=== PATIENT | female | born 1945 | race Asian ===

== ENCOUNTER 2016-11-23 05:31 | Day surgery (SDC) | payer OTHER ==
[~2016-11-23] VITALS: Ht 144.8 cm; Wt 39.1 kg
[~2016-11-23 05:31] MED LIST: ALBU8.5H IH; ALEN70TA48 PO; AMLO1CAP11 PO; BUDE10.2 IH; DOXY100C PO; INSLAN SQ; ITRA100 PO; LORA10TA7 PO; MEMA10TA11 PO; METF500T4 PO; MONT10TA21 PO; SIMV-260 PO; SITA50 PO; VITAD1000 PO; VORI200 PO
[2016-11-23] MEDS ORDERED: SODIUM CHLORIDE 0.9% 1,000 ML IV ONE ×2 (06:06→06:30)
[2016-11-23] MEDS ORDERED: MIDAZOLAM HCL 2 MG/2 ML VIAL ONE (07:35)
[2016-11-23] MEDS ORDERED: FentaNYL CITRATE-PF 100 MCG/2 ML VIAL ONE (07:36)
[2016-11-23] MEDS ORDERED: MethylPREDNISolone SOD SUCC 125 MG/2 ML VIAL IVP ONE (08:15)
[2016-11-23] MEDS ORDERED: MethylPREDNISolone SOD SUCC 125 MG/2 ML VIAL ONE (08:44)
[2016-11-23 08:57] LABS: GLUCOSE COMMENT 1 Doctor Notified; GLUCOSE,POINT OF CARE 113 MG/DL (70-110)
[2016-11-23] MEDS ORDERED: LIDOCAINE HCL 2% 30 ML JELLY TP ONE (16:50)
[2016-11-23] MEDS ORDERED: LIDOCAINE HCL 4% 50 ML SOLUTION TP ONE (16:50)
[2016-11-23] MEDS ORDERED: BENZOCAINE 20% 50 MCG/SPRAY 57 GM TP ONE (16:50)
[2016-11-23] MEDS ORDERED: EPINEPHrine 1:1,000 [1 MG/ML] AMP IM ONE (16:50)
[2016-11-23] MEDS ORDERED: OXYGEN THERAPY IH SCH (20:00)
== END 2016-11-23 09:50 | disposition home or self-care (01) ==
LOC: SURGERY 05:31
PROVIDERS: ATTEND Internal Medicine Critical Care Medicine
DX: J38.4 Edema of larynx (principal); I10 Essential (primary) hypertension; J45.909 Unspecified asthma, uncomplicated
CPT/HCPCS: 31623; 31624; 71010; 82962; 87015 ×2; 87070; 87101; 87205; 87220; 88108; 88312; J0171; J2250; J2930; J3010; J7030

== ENCOUNTER 2017-11-12 05:44 | Day surgery (SDC) | payer OTHER ==
[~2017-11-12] VITALS: Ht 147.3 cm; Wt 43.6 kg
[~2017-11-12 05:44] MED LIST changes: -ALBU8.5H IH; +ALBU8.5H8 IH
[2017-11-12] MEDS ORDERED: LIDOCAINE HCL 2% 30 ML JELLY TP ONE (05:45)
[2017-11-12] MEDS ORDERED: BENZOCAINE 20% 50 MCG/SPRAY 57 GM TP ONE (05:45)
[2017-11-12] MEDS ORDERED: ALBUTEROL SULFATE 2.5 MG/0.5 ML NEB SOLUTION NEB ONE (05:45)
[2017-11-12] MEDS ORDERED: LIDOCAINE HCL 4% 50 ML SOLUTION TP ONE (05:45)
[2017-11-12] MEDS ORDERED: SODIUM CHLORIDE 0.9% 1,000 ML IV ONE ×2 (05:52→06:30)
[2017-11-12] MEDS ORDERED: VITAD1000 PO (06:36)
[2017-11-12] MEDS ORDERED: ALBU8HFA IH (06:36)
[2017-11-12] MEDS ORDERED: INSLAN SQ (06:36)
[2017-11-12 06:43] LABS: GLUCOMETER DEV NAME(LOC) SDS 5; GLUCOSE,POINT OF CARE 176 MG/DL (70-110)
[2017-11-12] MEDS ORDERED: PANT40TA25 PO (06:46)
[2017-11-12] MEDS ORDERED: PRED10 PO (06:46)
[2017-11-12] MEDS ORDERED: INSREG SQ (06:46)
[2017-11-12] MEDS ORDERED: MECL-111 PO (06:46)
[2017-11-12] MEDS ORDERED: POTA8TAB7 PO (06:46)
[2017-11-12] MEDS ORDERED: DICY10 PO (06:46)
[2017-11-12] MEDS ORDERED: NORT10 PO (06:46)
[2017-11-12] MEDS ORDERED: ITRA100 PO (06:46)
[2017-11-12] MEDS ORDERED: SITA100 PO (06:46)
[2017-11-12] MEDS ORDERED: OMEP20 PO (06:46)
[2017-11-12] MEDS ORDERED: ACET500C4 PO (06:46)
[2017-11-12] MEDS ORDERED: DOXY100C PO (06:46)
[2017-11-12] MEDS ORDERED: CYAN100010 PO (06:46)
[2017-11-12] MEDS ORDERED: MIDAZOLAM HCL 2 MG/2 ML VIAL ONE (07:38)
[2017-11-12] MEDS ORDERED: FentaNYL CITRATE-PF 100 MCG/2 ML VIAL ONE (07:38)
[2017-11-12] MEDS ORDERED: MethylPREDNISolone SOD SUCC 125 MG/2 ML VIAL IVP ONE (08:45)
[2017-11-12] MEDS ORDERED: MethylPREDNISolone SOD SUCC 125 MG/2 ML VIAL ONE (08:55)
[2017-11-12] MEDS ORDERED: DILTIAZEM HCL 5 MG/ML 5 ML VIAL IVP STA (09:09)
[2017-11-12] MEDS ORDERED: DILTIAZEM HCL 5 MG/ML 5 ML VIAL IVP ONE (09:11)
[2017-11-12] MEDS ORDERED: OXYGEN THERAPY IH SCH (20:00)
== END 2017-11-12 09:55 | disposition home or self-care (01) ==
LOC: SURGERY 05:44
PROVIDERS: ATTEND Internal Medicine Critical Care Medicine
DX: J38.4 Edema of larynx (principal); B37.0 Candidal stomatitis; J84.111 Idiopathic interstitial pneumonia, not otherwise specified; I10 Essential (primary) hypertension; E11.9 Type 2 diabetes mellitus without complications; M19.90 Unspecified osteoarthritis, unspecified site; E78.00 Pure hypercholesterolemia, unspecified; Z79.82 Long term (current) use of aspirin; Z79.4 Long term (current) use of insulin; Z79.84 Long term (current) use of oral hypoglycemic drugs; Z79.899 Other long term (current) drug therapy
CPT/HCPCS: 31623; 31624; 71045; 82962; 87015; 87070; 87205; 87220; 88184; 88185; 93005; J2250; J2930; J3010; J3490; J7030; 88108; 88312

== ENCOUNTER 2019-12-29 05:40 | Day surgery (SDC) | payer OTHER ==
[2019-12-28 13:09] LABS: GLUCOMETER DEV NAME(LOC) PVLAB.13
[~2019-12-29] VITALS: Ht 144.8 cm; Wt 41.4 kg
[~2019-12-29 05:40] MED LIST changes: +ACET500C4 PO; -ALBU8.5H8 IH; +ALBU8HFA IH; -ALEN70TA48 PO; -BUDE10.2 IH; +CHOL100018 PO; +CYAN100010 PO; +DICY10 PO; +INSREG SQ; -LORA10TA7 PO; +MECL-160 PO; +METF-960 PO; -METF500T4 PO; +NORT10 PO; +OMEP20 PO; +PANT-31 PO; +POTA8TAB7 PO; +PRED10 PO; +SITA100 PO; -SITA50 PO; +SODIUM CHLORIDE 0.9% 1,000 ML ONE; -VITAD1000 PO; -VORI200 PO
[2019-12-29] MEDS ORDERED: SODIUM CHLORIDE 0.9% 1,000 ML IV ONE (06:30)
[2019-12-29 06:40] LABS: GLUCOMETER DEV NAME(LOC) SDS.; GLUCOSE,POINT OF CARE 210 MG/DL (70-110)
[2019-12-29] MEDS ORDERED: FentaNYL CITRATE-PF 100 MCG/2 ML VIAL ONE (07:43)
[2019-12-29] MEDS ORDERED: MIDAZOLAM HCL 2 MG/2 ML VIAL ONE (07:43)
[2019-12-29] MEDS ORDERED: MethylPREDNISolone SOD SUCC 125 MG/2 ML VIAL IVP ONE (08:45)
[2019-12-29] MEDS ORDERED: MethylPREDNISolone SOD SUCC 125 MG/2 ML VIAL ONE (08:58)
[2019-12-29] MEDS ORDERED: LIDOCAINE 4% 50 ML SOLUTION ONE (14:59)
[2019-12-29] MEDS ORDERED: LIDOCAINE 2% 30 ML JELLY ONE (14:59)
[2019-12-29] MEDS ORDERED: ALBUTEROL SULFATE 2.5 MG/0.5 ML NEB SOLUTION NEB ONE (14:59)
[2019-12-29] MEDS ORDERED: BENZOCAINE 20% 50 MCG/SPRAY 57 GM ONE (14:59)
[2019-12-29] MEDS ORDERED: OXYGEN THERAPY IH SCH (20:00)
== END 2019-12-29 10:20 | disposition home or self-care (01) ==
LOC: SURGERY 05:40
PROVIDERS: ATTEND Internal Medicine Critical Care Medicine
DX: R05 Cough (principal); R91.1 Solitary pulmonary nodule; J98.8 Other specified respiratory disorders; J34.89 Other specified disorders of nose and nasal sinuses; J38.4 Edema of larynx; J47.9 Bronchiectasis, uncomplicated; I10 Essential (primary) hypertension; E78.00 Pure hypercholesterolemia, unspecified; E11.9 Type 2 diabetes mellitus without complications; M19.90 Unspecified osteoarthritis, unspecified site; Z79.899 Other long term (current) drug therapy; Z11.59 Encounter for screening for other viral diseases
CPT/HCPCS: 31623; 31624; 71045; 82962; 87015; 87070; 87101; 87205; 87206; 87220; 87635; 88112; 88312; J2250; J2930; J3010; J7030; J7613; Z7610

== ENCOUNTER 2020-11-08 05:57 | Day surgery (SDC) | payer OTHER ==
[2020-11-07 11:28] LABS: COVID AG,FIA SOURCE NASOPHARYNGEAL
[~2020-11-08] VITALS: Ht 147.3 cm; Wt 40.5 kg
[~2020-11-08 05:57] MED LIST changes: +MONT-35 PO; -MONT10TA21 PO; -SODIUM CHLORIDE 0.9% 1,000 ML ONE
[2020-11-08] MEDS ORDERED: LIDOCAINE 4% 50 ML SOLUTION TP ONE (05:58)
[2020-11-08] MEDS ORDERED: LIDOCAINE 2% 5 ML JELLY TP ONE (05:58)
[2020-11-08] MEDS ORDERED: BENZOCAINE 20% 50 MCG/SPRAY 57 GM TP ONE (05:58)
[2020-11-08] MEDS ORDERED: LIDOCAINE 2% 30 ML JELLY TP ONE (05:58)
[2020-11-08] MEDS ORDERED: ALBUTEROL SULFATE 2.5 MG/0.5 ML NEB SOLUTION NEB ONE (05:58)
[2020-11-08] MEDS ORDERED: SODIUM CHLORIDE 0.9% 1,000 ML ONE (06:05)
[2020-11-08] MEDS ORDERED: SODIUM CHLORIDE 0.9% 1,000 ML IV ONE (06:30)
[2020-11-08] MEDS ORDERED: MIDAZOLAM HCL 2 MG/2 ML VIAL ONE (07:13)
[2020-11-08] MEDS ORDERED: FentaNYL CITRATE PF 100 MCG/2 ML VIAL ONE (07:14)
[2020-11-08 08:24] LABS: GLUCOMETER DEV NAME(LOC) SDS.; GLUCOSE,POINT OF CARE 219 MG/DL (70-110)
[2020-11-08] MEDS ORDERED: MethylPREDNISolone SOD SUCC 125 MG/2 ML VIAL IVP ONE (09:00)
[2020-11-08] MEDS ORDERED: MethylPREDNISolone SOD SUCC 125 MG/2 ML VIAL ONE (09:30)
[2020-11-08] MEDS ORDERED: OXYGEN THERAPY IH SCH (20:00)
== END 2020-11-08 10:40 | disposition home or self-care (01) ==
LOC: SURGERY 05:57
PROVIDERS: ATTEND Internal Medicine Critical Care Medicine
DX: J38.4 Edema of larynx (principal); B37.0 Candidal stomatitis; I10 Essential (primary) hypertension; E78.5 Hyperlipidemia, unspecified; M19.90 Unspecified osteoarthritis, unspecified site; E78.00 Pure hypercholesterolemia, unspecified; E11.9 Type 2 diabetes mellitus without complications; Z98.890 Other specified postprocedural states; Z79.899 Other long term (current) drug therapy
CPT/HCPCS: 31623; 31624; 71045; 82962; 87015; 87070; 87101; 87206; 87220; 87426; 88108; 88184; 88185; 88312; C9803; J2250; J2930; J3010; J7030; J7613; Z7610

== ENCOUNTER 2023-02-01 05:33 | Day surgery (SDC) | payer OTHER ==
[~2023-02-01] VITALS: Ht 142.2 cm; Wt 42.7 kg
[~2023-02-01 05:33] MED LIST changes: +ALBU18HF12 IH; -ALBU8HFA IH; +DICY-1 PO; -DICY10 PO; -ITRA100 PO; +METF-1211 PO; -METF-960 PO; +PRED-729 PO; -PRED10 PO; +[UNRECOGNIZED DRUG - CODE] PO
[2023-02-01] MEDS ORDERED: LIDOCAINE 2% 11 ML JELLY TP ONE (05:34)
[2023-02-01] MEDS ORDERED: LIDOCAINE 4% 50 ML SOLUTION TP ONE (05:34)
[2023-02-01] MEDS ORDERED: BENZOCAINE 20% 50 MCG/SPRAY 57 GM TP ONE (05:34)
[2023-02-01] MEDS ORDERED: SODIUM CHLORIDE 0.9% 1,000 ML ONE (07:44)
[2023-02-01] MEDS ORDERED: FentaNYL CITRATE PF 100 MCG/2 ML VIAL ONE (08:00)
[2023-02-01] MEDS ORDERED: MIDAZOLAM HCL 2 MG/2 ML VIAL ONE (08:01)
[2023-02-01 08:36] LABS: GLUCOMETER DEV NAME(LOC) SDS.; GLUCOSE,POINT OF CARE 185 MG/DL (70-110)
[2023-02-01 08:55] VITALS: PULSE 85; RESP 19; O2SAT 99
[2023-02-01] MEDS ORDERED: MethylPREDNISolone SOD SUCC 125 MG/2 ML VIAL ONE (08:55)
[2023-02-01] MEDS ORDERED: SODIUM CHLORIDE 0.9% 1,000 ML IV ONE (09:00)
[2023-02-01] MEDS ORDERED: MethylPREDNISolone SOD SUCC 125 MG/2 ML VIAL IVP ONE (09:15)
[2023-02-01] MEDS ORDERED: HYDR-4527 PO (09:46)
[2023-02-01] MEDS ORDERED: BUDE10.27 IH (09:46)
[2023-02-01] MEDS ORDERED: BENZ-227 PO (09:46)
[2023-02-01] MEDS ORDERED: LOSA-381 PO (09:46)
[2023-02-01] MEDS ORDERED: CETI-450 PO (09:46)
== END 2023-02-01 11:25 | disposition home or self-care (01) ==
LOC: SURGERY 05:33
PROVIDERS: ATTEND Internal Medicine Critical Care Medicine
DX: J38.4 Edema of larynx (principal); B37.0 Candidal stomatitis; J45.909 Unspecified asthma, uncomplicated; I10 Essential (primary) hypertension; E11.9 Type 2 diabetes mellitus without complications; Z98.49 Cataract extraction status, unspecified eye; Z98.890 Other specified postprocedural states; Z79.899 Other long term (current) drug therapy
CPT/HCPCS: 31623; 88112; 82962; 87206; 87101; 87220; 87070; 31624; 71045; 87015; J3010; J2250; J2930; Q9967; J7030; Z7610

== ENCOUNTER 2024-01-17 06:51 | Day surgery (SDC) | payer OTHER ==
[~2024-01-17] VITALS: Ht 142.2 cm; Wt 41.8 kg
[~2024-01-17 06:51] MED LIST changes: -AMLO1CAP11 PO; +BENZ-227 PO; +BUDE10.27 IH; +CETI-450 PO; -DOXY100C PO; +HYDR-4527 PO; +ITRA100C24 PO; +LOSA-381 PO; -MECL-160 PO; +MECL-302 PO; -MEMA10TA11 PO; +MEMA10TA24 PO; -PRED-729 PO; +SODIUM CHLORIDE 0.9% 1,000 ML ONE; -[UNRECOGNIZED DRUG - CODE] PO
[2024-01-17] MEDS: SODIUM CHLORIDE 0.9% 1,000 ML IV ONE (07:47)
[2024-01-17] MEDS ORDERED: FentaNYL CITRATE PF 100 MCG/2 ML VIAL ONE (08:02)
[2024-01-17] MEDS ORDERED: MIDAZOLAM HCL 2 MG/2 ML VIAL ONE (08:02)
[2024-01-17 08:06] LABS: GLUCOMETER DEV NAME(LOC) SDS.; GLUCOSE,POINT OF CARE 244 MG/DL (70-110)
[2024-01-17 09:15] VITALS: PULSE 99; RESP 18; O2SAT 98
[2024-01-17] MEDS ORDERED: MethylPREDNISolone SOD SUCC 125 MG/2 ML VIAL ONE ×2 (09:44→10:16)
[2024-01-17] MEDS: MethylPREDNISolone SOD SUCC 125 MG/2 ML VIAL IVP ONE (10:17)
[2024-01-17] MEDS ORDERED: BENZOCAINE 20% 50 MCG/SPRAY 57 GM ONE (12:00)
[2024-01-17] MEDS ORDERED: LIDOCAINE 2% 11 ML JELLY ONE (12:00)
[2024-01-17] MEDS ORDERED: LIDOCAINE 4% 50 ML SOLUTION ONE (12:00)
== END 2024-01-17 11:25 | disposition home or self-care (01) ==
LOC: SURGERY 06:51
PROVIDERS: ATTEND Internal Medicine Critical Care Medicine
DX: R05.3 Chronic cough (principal); J38.4 Edema of larynx; B37.0 Candidal stomatitis; R06.2 Wheezing; J84.10 Pulmonary fibrosis, unspecified; J91.8 Pleural effusion in other conditions classified elsewhere; I10 Essential (primary) hypertension; E11.9 Type 2 diabetes mellitus without complications; E03.9 Hypothyroidism, unspecified; E78.00 Pure hypercholesterolemia, unspecified; M19.90 Unspecified osteoarthritis, unspecified site; Z79.4 Long term (current) use of insulin; Z79.899 Other long term (current) drug therapy
CPT/HCPCS: 82962; 87206; 87101; 87220; 87070; 31623; 31624; 71045; 87015; J3010; J2250; J2919; Q9967; J7030; Z7610

== ENCOUNTER 2025-01-22 06:45 | Day surgery (SDC) | payer OTHER ==
[~2025-01-22] VITALS: Ht 147.3 cm; Wt 40.9 kg
[~2025-01-22 06:45] MED LIST changes: -HYDR-4527 PO; +HYDR25TA83 PO; +OMEP-148 PO; -OMEP20 PO
[2025-01-22] MEDS: SODIUM CHLORIDE 0.9% 1,000 ML IV ONE (07:37)
[2025-01-22] MEDS ORDERED: MIDAZOLAM HCL 2 MG/2 ML VIAL ONE (07:51)
[2025-01-22] MEDS ORDERED: FentaNYL CITRATE PF 100 MCG/2 ML VIAL ONE (07:51)
[2025-01-22] MEDS ORDERED: LINA5TAB PO (08:10)
[2025-01-22 08:50] LABS: GLUCOMETER DEV NAME(LOC) SDS.; GLUCOSE,POINT OF CARE 195 MG/DL (70-110)
[2025-01-22 09:10] VITALS: PULSE 96; RESP 16; O2SAT 100
[2025-01-22] MEDS ORDERED: MethylPREDNISolone SOD SUCC 125 MG/2 ML VIAL ONE (09:40)
[2025-01-22] MEDS: MethylPREDNISolone SOD SUCC 125 MG/2 ML VIAL IVP ONE (09:50)
[2025-01-22] MEDS ORDERED: LIDOCAINE 4% 50 ML SOLUTION ONE (18:00)
[2025-01-22] MEDS ORDERED: LIDOCAINE 2% 11 ML JELLY ONE (18:00)
[2025-01-22] MEDS ORDERED: ALBUTEROL SULFATE 2.5 MG/0.5 ML NEB SOLUTION NEB ONE (18:00)
[2025-01-22] MEDS ORDERED: BENZOCAINE 20% 50 MCG/SPRAY 57 GM ONE (18:00)
== END 2025-01-22 12:30 | disposition home or self-care (01) ==
LOC: SURGERY 06:45
PROVIDERS: ATTEND Internal Medicine Critical Care Medicine
DX: R05.3 Chronic cough (principal); R04.2 Hemoptysis; J38.4 Edema of larynx; B37.0 Candidal stomatitis; I10 Essential (primary) hypertension; Z79.899 Other long term (current) drug therapy; E11.9 Type 2 diabetes mellitus without complications; M19.90 Unspecified osteoarthritis, unspecified site; Z98.49 Cataract extraction status, unspecified eye; Z98.890 Other specified postprocedural states
CPT/HCPCS: 31623; 82962; 87206; 87101; 87220; 87070; 88108; 31624; 94640; 71045; 87015; J3010; J2250; J2919; J7030; J7613; Z7610